=== PATIENT | female | born 1955 | race Caucasian/White ===

== ENCOUNTER 2022-01-22 05:26 | Day surgery (SDC) | payer MEDICARE, OTHER ==
[~2022-01-22] VITALS: Ht 166 cm; Wt 79.0 kg
[~2022-01-22 05:26] MED LIST: BENTYL10 MG PO; CHLORTHALIDONE25 MG PO; CLARITIN10 MG PO; EFFEXOR XR37.5 MG PO; ESCITALOPRAM OX10 MG PO; ESTRACE1 M1 PO; ESTRACE1 MG PO; K-DUR20 MEQ PO; LEVOTHYROXINE75 MC1 PO; LEXAPRO 10MG TA10 MG PO; LIOTHYRONINE SO5 MCG PO; LISINOPRIL30 MG PO; MELOXICAM7.5 MG PO; PANTOPRAZOLE SO20 MG PO; PRINIVIL20 MG PO; VENLAFAXINE H37.5 M1 PO
--- NOTE | 2022-01-22 11:37 | NUR ---
PT HAD A RTKR THIS DATE. [facility] TO DELIVER A RW. PT WILL CARE [facility].
[2022-01-23 07:00] LABS: BASOPHIL 0.1 % (0-2); EOSINOPHIL 0.5 % (0-7); HCT 35.7 % (37.0-47.0); HGB 11.5 g/dl (12.5-16.0); LYMPHOCYTE 13.5 % (15-48); MCH 28.4 pg (25.0-31.0); MCHC 32.2 g/dL (32.0-36.0); MCV 88.1 fL (78.0-100.0); MONOCYTE 8.3 % (0-12); MPV 10.5 fL (6.0-9.5); NEUTROPHIL 77.2 % (41-80); NRBC 0; PLT 216 K/uL (150-400); RBC 4.05 M/uL (4.20-5.40); RDW 13.1 % (11.5-14.0); WBC 8.1 K/uL (4.0-10.5)
[2022-01-23 07:16] LABS: BUN/CREAT RATIO (CALC) 11.4 RATIO; CREATININE 0.7 mg/dL (0.51-0.95); POTASSIUM 4.2 mmol/L (3.5-5.1)
[2022-01-23] MEDS ORDERED: XARELTO10 MG PO (10:19)
[2022-01-23] MEDS ORDERED: FEOSOL325 MG PO (10:19)
[2022-01-23] MEDS ORDERED: ONDANSETRON HCL4 MG PO (10:19)
[2022-01-23] MEDS ORDERED: OXYCODONE-ACET1 EAC1 PO (10:19)
--- NOTE | 2022-01-23 10:55 | NUR ---
PER KATHRINE MADDOX AT [facility] [phone] PT. MELANIERELTO COPAY IS $184.00. RAMANA DE LA CRUZ, CHECKED WITH PT AND SHE IS OK WITH THE AMT.
== END 2022-01-23 13:56 | disposition home health service (06) ==
LOC: FAS 05:26 → FMS 05:26 → FAS 07:00 → FMS 09:09 → FAS 01-23 13:56
PROVIDERS: Legal Medicine
DX: M21.161 Varus deformity, not elsewhere classified, right knee (principal); M17.11 Unilateral primary osteoarthritis, right knee; M25.761 Osteophyte, right knee; M67.261 Synovial hypertrophy, not elsewhere classified, right lower leg; I10 Essential (primary) hypertension; E03.9 Hypothyroidism, unspecified; F41.8 Other specified anxiety disorders; Z90.710 Acquired absence of both cervix and uterus; Z88.6 Allergy status to analgesic agent; Z88.8 Allergy status to other drugs, medicaments and biological substances
CPT/HCPCS: 36415; 73560; 80048; 85025; 86850; 86900; 86901; 94010; 94762; 97162; 97165; 97530-GP; 97535; C1713; C1776; J0171; J0697; J1170; J1885; J2250; J2405; J2795; J3010; J7120

== ENCOUNTER → 2022-03-19 | Day surgery (SDC) | payer MEDICARE, OTHER ==
[~2022-03-19] VITALS: Ht 166 cm; Wt 79.4 kg
[~2022-03-19] MED LIST changes: +FEOSOL325 MG PO; +ONDANSETRON HCL4 MG PO; +OXYCODONE-ACET1 EAC1 PO; +XARELTO10 MG PO
== END | disposition home or self-care (01) ==
LOC: FAS 05:55
DX: M24.661 Ankylosis, right knee (principal); G89.18 Other acute postprocedural pain; I10 Essential (primary) hypertension; K21.9 Gastro-esophageal reflux disease without esophagitis; M19.90 Unspecified osteoarthritis, unspecified site; M79.7 Fibromyalgia; E06.3 Autoimmune thyroiditis; Z96.651 Presence of right artificial knee joint; Z79.899 Other long term (current) drug therapy; Z88.5 Allergy status to narcotic agent; Z88.6 Allergy status to analgesic agent; Z88.8 Allergy status to other drugs, medicaments and biological substances
CPT/HCPCS: 97162; 97530-GP; J2250; J2704; J2795; J3010; J7120